=== PATIENT | male | born 1960 | race Caucasian/White ===

== ENCOUNTER 2021-07-01 09:40 | Emergency (ER) | payer OTHER ==
[~2021-07-01 09:40] MED LIST: COMBIVENT RESPIM4 GM INH; LEVAQUIN500 MG PO; PREDNISONE 10MG10 MG PO; PRILOSEC20 MG PO; TESSALON PERLE100 MG PO; VENTOLIN HFA IN18 GM INH
[2021-07-01 10:00] LABS: BASOPHIL 0.2 % (0-2); HGB 14.5 g/dl (13.2-18.0); MCH 29.2 pg (25.0-31.0); MCHC 33.7 g/dL (32.0-36.0); MCV 86.5 fL (78.0-100.0); MONOCYTE 6.1 % (0-12); MPV 10.5 fL (6.0-9.5); NEUTROPHIL 65.5 % (41-80); NRBC 0; PLT 193 K/uL (150-400); RBC 4.97 M/uL (4.70-6.00); RDW 12.9 % (11.5-14.0); WBC 4.9 K/uL (4.0-10.5)
[2021-07-01 10:21] LABS: ALBUMIN 3.7 g/dL (3.4-5.0); BILIRUBIN - TOTAL 0.7 mg/dL (0.2-1.0); BUN/CREAT RATIO (CALC) 15.2 RATIO; CREATININE 1.05 mg/dL (0.67-1.17); GLOBULIN (CALCULATION) 3.4 g/dL; POTASSIUM 3.6 mmol/L (3.5-5.1); TOTAL PROTEIN 7.1 g/dL (6.4-8.2)
[2021-07-01 10:52] LABS: CORONAVIRUS 2019 SARS-COV-2 NEGATIVE (NEGATIVE); INFLUENZA A NAA NEGATIVE (NEGATIVE)
== END 2021-07-01 14:24 | disposition home or self-care (01) ==
LOC: FER 09:40
PROVIDERS: Internal Medicine
DX: R07.89 Other chest pain (principal); R00.2 Palpitations; Z91.030 Bee allergy status; Z20.822 Contact with and (suspected) exposure to COVID-19
CPT/HCPCS: 36415; 71045; 80053; 83880; 84145; 84443; 84484; 85025; 93005; U0002